=== PATIENT | male | born 1990 | race Caucasian/White ===

== ENCOUNTER 2017-04-12 18:00 | Inpatient (IN) | payer OTHER ==
[~2017-04-12] VITALS: Ht 185.4 cm; Wt 99.8 kg
--- NOTE | ~2017-04-12 | HP ---
Unit #: [id number] #: [id number] Patient: AMILCAR PALACIOS [id number] [place] [address] [id number] I MR#: [id number] NAME: AMILCAR PALACIOS. ROOM: P205 Age: 27 Sex: M Admission Date: 04/12/2017 : 1990 Attending Physician: Lauren Schilling M.D. Admitting Physician: Lauren Schilling M.D. Primary Care Physician: Amilcar Narayanan M.D. HISTORY AND PHYSICAL HISTORY OF PRESENT ILLNESS The patient is a 27-year-old male admitted to [address] [place] [address] on 04/12/2017 for suicidal ideations and drug use. PAST MEDICAL HISTORY The patient denies. PAST SURGICAL HISTORY The patient denies. SOCIAL HISTORY He is unemployed and homeless. He smokes two packs of cigarettes daily, refuses to discuss his drug use. FAMILY MEDICAL HISTORY Noncontributory. ALLERGIES No known drug allergies. CURRENT MEDICATIONS The patient is not on any home medications. REVIEW OF SYSTEMS CONSTITUTIONAL: No fever or chills. HEENT: Denies any sore throat, ear pain or runny nose. CARDIOVASCULAR: Denies chest pain, irregular heart rhythm or palpitations. CHEST: Denies shortness of breath or cough. No hemoptysis. GASTROINTESTINAL: Denies nausea, vomiting, diarrhea or chronic constipation. ENDOCRINE: Denies history of increased thirst or urination. No recent significant weight loss or gain. GENITOURINARY: Denies dysuria, frequency, or hematuria. SKIN: Denies any rashes. HEMATOLOGIC: Denies history of increased bleeding or bruising. MUSCULOSKELETAL: Denies any hot, swollen joints. No generalized muscle pain. NEUROLOGIC: Denies problems with vision or speech. No frequent, severe headaches. No numbness, tingling or weakness in any extremities. Denies loss of bladder or bowel control. PHYSICAL EXAM GENERAL: He is awake, alert and oriented in no acute distress. Unit #: [id number] #: [id number] Patient: AMILCAR PALACIOS VITAL SIGNS: Temperature 98.1, heart rate 72, respiration 18, blood pressure 151/99. HEIGHT: 6'0". WEIGHT: 250 pounds. SKIN: Warm and dry without rash or lesion. HEENT: Normocephalic. TMs not viewed. Oral and nasal passages clear. Conjunctivae clear. PERRLA. EOMs intact. NECK: Supple without lymphadenopathy or thyromegaly. HEART: Regular rate and rhythm without murmur. LUNGS: Clear. ABDOMEN: Soft, nontender. : Not done. EXTREMITIES: No evidence of cyanosis, clubbing or edema. Moves all without focal deficit. NEUROLOGICAL: Grossly within normal limits. Cranial Nerves: II: Visual galvin are intact. III, IV AND : Extraocular movements are intact. Pupils are equal, round and reactive to light. V: Facial sensation is grossly normal. VII: Facial movements and expression are normal. VIII: Auditory acuity grossly intact. IX, X: Uvula is midline. Phonation is normal. XI: Patient shrugs shoulders and turns head normally. XII: Tongue protrudes in the midline. Sensory and Motor Function: Sensory and motor sensation is grossly normal. Motor: moves all extremities well. IMPRESSION 1. Psychiatric admission. 2. Polysubstance use. RECOMMENDATIONS Psychiatric per psychiatrist. MEDICAL: No contraindication to participate in facility activities. MEDICAL PROGNOSIS Good. MEDICAL CONDITION Stable. Dictated by... Ryan Hernandez/gianna TD: 04/14/2017 01:23 JOB #: [id number] Unit #: [id number] #: [id number] Patient: AMILCAR PALACIOS HISTORY AND PHYSICAL Page 1 of 1 X KRYSTAL MICHAEL APRN HISTORY AND PHYSICAL
--- NOTE | ~2017-04-12 | DS ---
Unit #: [id number] #: [id number] Patient: [facility]YNOLDS [id number] [facility] [address] [place] [address] [id number] I MR#: [id number] NAME: AMILCAR REYNOLDS ROOM: P205 Age: 27 Sex: M Admission Date: 04/12/2017 : 1990 Discharge Date: 04/18/2017 Attending Physician: Lauren Schilling M.D. Primary Care Physician: Amilcar Narayanan M.D. DISCHARGE SUMMARY IDENTIFYING DATA Mr. Reynolds is a 27-year-old single white male, who is a resident of [place], [place], and is known to us from previous encounter, and was brought to the hospital by his family. DISCHARGE DIAGNOSES Psychiatric: Bipolar disorder, most recent episode depressed, recurrent, moderate, without psychotic features; methamphetamine abuse, moderate; benzodiazepine abuse, moderate. Medical: None. Stressors: Moderate psychosocial stressors. HISTORY OF PRESENT ILLNESS Please see initial psychiatric evaluation for details. PAST PSYCHIATRIC HISTORY Please see initial psychiatric evaluation for details. PAST MEDICAL HISTORY Please see initial psychiatric evaluation for details. HOSPITAL COURSE The patient was admitted to the adult psychiatric unit at [facility] and was oriented to the hospital environment. Routine p.r.n. medications were initiated, and he was started back on his home medications and upon initial presentation, the patient was seen to be extremely agitated and psychotic and aggressive and hostile and code was called and the patient did end up being in a code in restraints and p.r.n. medications were given and was seen to be quite hostile and aggressive and as such, medications particularly Depakote and Zyprexa were initiated as a mood stabilizer and he was seen to be doing fairly well and then able to calm down and carry on meaningful conversation. He stated that he would like to have something started for ADHD, for which Strattera was started. He was taking the medications regularly and was tolerating them fairly well and was able to show a decent and therapeutic response without any tolerability issues and was wanting to go home and was willing to continue treatment on an outpatient basis. He was denying any suicidal ideations, intent, or plan and was not seen to be a danger to self or anyone else, and as such, it was decided that he will be discharged home and will continue treatment on an outpatient basis. DISCHARGE MEDICATIONS Depakote 1000 mg b.i.d. for bipolar, Zyprexa 10 mg b.i.d. for bipolar, Strattera 40 mg in the morning for ADHD. Unit #: [id number] #: [id number] Patient: AMILCAR REYNOLDS DISCHARGE CONDITION Stable. PROGNOSIS Fair. Dictated by... Zurdo Betancourt/darron TD: 04/18/2017 07:47 JOB #: [id number] DISCHARGE SUMMARY Page 1 of 1 X Lauren Schilling MD X DISCHARGE SUMMARY
--- NOTE | ~2017-04-12 | PN ---
Unit #: [id number] #: [id number] Patient: RAQUEL REYNOLDS [id number] [facility] [address] [place] [address] [id number] MR#: [id number] NAME: RAQUEL REYNOLDS ROOM: P205 Age: 27 Sex: M Admission Date: 04/12/2017 : 1990 Attending Physician: Lauren Schilling M.D. Admitting Physician: Lauren Scihlling M.D. Primary Care Physician: Zurdo Morales PROGRESS NOTES DATE 04/16/2017 DISCUSSION Mr. Reynolds is a 27-year-old white male who was seen today and chart was reviewed and case was discussed with the staff. He has been anxious, withdrawn and rather seclusive to himself. Meanwhile, he has been cooperative with treatment recommendations and has been taking the medications and tolerating them fairly well with no reported side effects. MENTAL STATUS EXAMINATION Young white male who was casually dressed with fair personal hygiene and appears to be in no acute distress or discomfort. He was awake and alert on interaction with intact orientation. His mood was anxious with congruent affect. He denies any suicidal or homicidal ideations. His insight and judgement remains slightly impaired. TREATMENT PLAN 1. Will continue his medications and treatment protocol. Will monitor his response to the medications and make further adjustments as needed. 2. Will continue to follow up. Dictated by... Zurdo Betancourt/wolfgang TD: 04/16/2017 18:15 JOB #: [id number] Unit #: [id number] #: [id number] Patient: RAQUEL REYNOLDS PROGRESS NOTES Page 1 of 1 X Lauren Schilling MD X PROGRESS NOTE
--- NOTE | ~2017-04-12 | PA ---
Unit #: [id number] #: [id number] Patient: AMILCAR REYNOLDS [id number] [facility] [address] [place] [address] [id number] I MR#: [id number] NAME: AMILCAR REYNOLDS ROOM: P205 Age: 27 Sex: M Admission Date: 04/12/2017 : 1990 Date of Assessment: 04/13/2017 Attending Physician: Lauren Schilling M.D. Admitting Physician: Lauren Schilling M.D. Primary Care Physician: Amilcar Narayanan M.D. PSYCHIATRIC ASSESSMENT IDENTIFYING DATA Mr. Reynolds is a 27-year-old, single, white male, who is a resident of [place], [place], and is known to us from previous encounter, was self-referred to the hospital. CHIEF COMPLAINT "I'm having suicidal thoughts and I'm doing drugs." HISTORY OF PRESENT ILLNESS Mr. Reynolds is a 27-year-old, white male, who was brought to the hospital in acute psychotic, agitated, aggressive and hostile state and stated that he does not know why he is here and that he was brought in by his parents and they left and the parents reported that he has been suicidal and the patient was initially denying it, however, a phone call received from mother indicates that mother called and reported that there is a list of things that the patient and mother did today and the list of items that he is going to do himself, making statements on the paper that he is going to hang himself out back and stated that her friend just found a letter few minutes ago in the mother's house and the list was written on a book of mother's and mother stated that it appears that this has been written in the last 12 hours and mother also stated at about 1900 hours today, the patient allegedly called mother of his child and threatened her life and he was going to "take her life." There was no specific method of how he was going to do it. Mother also reported that the patient has been incessantly calling maternal grandmother that the patient's parents need to come back and get him or they will be sorry and the patient's mother reports that he has been using crack and methamphetamine on and off and she believes that he used meth in the last week. The patient was seen to be acutely psychotic, agitated, aggressive, hostile, particularly violent on presentation to the unit and a code was called and he did end up receiving intramuscular injections of Thorazine and on evaluation by me this morning, the patient was once again seen to be agitated, irritable, hostile, and stated that he has been using drugs and he needs mental health help and he is not leaving here until he gets help for both and was seen to be agitated and irritable with pressured speech, but at the same time showing better insight into his situation. Realizing that he has substance abuse issues and mental health issues and showing motivation towards treatment as he appears to be a significant threat to himself and others with suicidal and homicidal statements and recommendation for inpatient level of care has been made. SUBSTANCE ABUSE HISTORY The patient reports extensive history of substance abuse and dependence Unit #: [id number] #: [id number] Patient: AMILCAR REYNOLDS including alcohol, cannabis, cocaine, opioids, methamphetamine, and benzodiazepines, and more recently it appears that he has been using methamphetamine and benzodiazepines on a regular basis. PAST PSYCHIATRIC HISTORY The patient has had a history of psychiatric treatment in the past. Review of the medical records indicate that currently he is not active in any treatment program, and is not seeing a psychiatrist, and is not taking any psychotropic medications. PAST MEDICAL HISTORY No acute or chronic medical illnesses. ALLERGIES No known medication allergies. PERSONAL AND SOCIAL HISTORY A 27-year-old white male, who reports that he is single, unemployed, and lives alone and has poor social support system. MENTAL STATUS EXAMINATION Young white male, who was casually dressed with fair personal hygiene, appears to be in no acute distress or discomfort. He was awake and alert on interaction with intact orientation to time, place, and person. His mood was anxious and depressed with a congruent affect. His speech was slow and restricted in content. His thought processes were disorganized with some looseness of associations and flight of ideas, paranoid ideations, suicidal or homicidal ideations. His insight and judgment remain significantly impaired. DIAGNOSTIC IMPRESSION Psychiatric: Bipolar disorder, most recent episode depressed, recurrent, moderate, without psychotic features; methamphetamine abuse, moderate; benzodiazepine abuse, moderate. Medical: None. Stressors: Moderate psychosocial stressors. TREATMENT PLAN 1. The patient has presented with a history of substance abuse and mood disorder, and has been decompensating and will need inpatient hospitalization for safety and stabilization. We will start him back his home medications. We will monitor response and make further adjustments as needed. 2. Supportive therapy was provided to the patient. 3. Safe, structured, and nourishing environment will be provided. ESTIMATED LENGTH OF STAY 5 to 7 days. ABILITY TO HELP SELF Limited. WILLINGNESS TO HELP SELF The patient appears to be willing to help self. STRENGTHS Unit #: [id number] #: [id number] Patient: AMILCAR REYNOLDS 1. Communicative. 2. Cooperative. PROBLEMS 1. Chronic dysphoric symptoms. 2. Poor social support system. 3. Chronic chemical dependency. DISCHARGE CRITERIA This will be contingent upon the patient's ability to show resolution of depression and anxiety and his ability to stay safe to himself, particularly after discharge from the hospital. Dictated by... Zurdo Betancourt/darron TD: 04/14/2017 03:35 JOB #: [id number] PSYCHIATRIC ASSESSMENT Page 1 of 1 X Lauren Schilling MD X PSYCHIATRIC ASSESSMENT
--- NOTE | ~2017-04-12 | PN ---
Unit #: [id number] #: [id number] Patient: RAQUEL REYNOLDS [id number] [facility] [address] [place] [address] [id number] I MR#: [id number] NAME: RAQUEL REYNOLDS ROOM: P205 Age: 27 Sex: M Admission Date: 04/12/2017 : 1990 Attending Physician: Lauren Schilling M.D. Admitting Physician: Lauren Schilling M.D. Primary Care Physician: Zurdo Morales PROGRESS NOTES DATE 04/14/2017 DISCUSSION Mr. Reynolds is a 27-year-old white male who was seen today and chart was reviewed and case was discussed with the staff. He appears to be somewhat calmer as he has been taking the medications and tolerating them fairly well. He remains disorganized, anxious, unkempt, disheveled. However, no agitation or aggression has been noted. MENTAL STATUS EXAMINATION Young white male who was casually dressed with fair personal hygiene and appears to be in no acute distress or discomfort. He was awake and alert on interaction with intact orientation. His mood was anxious with congruent affect. He denies any suicidal or homicidal ideations. His insight and judgement remains slightly impaired. TREATMENT PLAN 1. Will continue on his current treatment protocol. Will monitor his response to the medications and make further adjustments as needed. 2. Will continue to follow up. Dictated by... Zurdo Betancourt/wolfgang TD: 04/15/2017 15:56 JOB #: [id number] Unit #: [id number] #: [id number] Patient: RAQUEL REYNOLDS PROGRESS NOTES Page 1 of 1 X Lauren Schilling MD X PROGRESS NOTE
--- NOTE | ~2017-04-12 | PN ---
Unit #: [id number] #: [id number] Patient: AMILCAR REYNOLDS [id number] [facility] [address] [place] [address] [id number] I MR#: [id number] NAME: AMILCAR REYNOLDS ROOM: P205 Age: 27 Sex: M Admission Date: 04/12/2017 : 1990 Attending Physician: Lauren Schilling M.D. Admitting Physician: Lauren Schilling M.D. Primary Care Physician: Amilcar Narayanan M.D. [facility] PROGRESS NOTES DATE 04/15/2017 DISCUSSION Mr. Reynolds is a 27-year-old, white male who was seen today and chart was reviewed and case was discussed with the staff. He has been anxious, withdrawn, reports not feeling good, still having negative thoughts (1) stating that he has been having thoughts of hurting himself and hurting other people and that he wants to get better and has been taking medications and has been asking me as to how long it is going to take for the medication to start being affective. MENTAL STATUS EXAM Young white male who was casually dressed with fair personal hygiene, appears to be in no acute distress or discomfort. He was awake and alert with impaired attention and concentration. His mood was anxious with congruent affect. He reports having suicidal ideation as well as vague homicidal ideation. His insight and judgement remains significantly impaired. TREATMENT PLAN 1. We will continue him on his current medications and treatment protocol. We will monitor his response to the medication and make further adjustments as needed. 2. We will continue to follow up. Dictated by... Zurdo Betancourt/gianna TD: 04/16/2017 05:02 JOB #: [id number] Unit #: [id number] #: [id number] Patient: AMILCAR REYNOLDS PROGRESS NOTES Page 1 of 1 X Lauren Schilling MD X PROGRESS NOTE
--- NOTE | ~2017-04-12 | PN ---
Unit #: [id number] #: [id number] Patient: AMILCAR REYNOLDS [id number] [facility] [address] [place] [address] [id number] I MR#: [id number] NAME: AMILCAR REYNOLDS ROOM: P205 Age: 27 Sex: M Admission Date: 04/12/2017 : 1990 Attending Physician: Lauren Schilling M.D. Admitting Physician: Lauren Schilling M.D. Primary Care Physician: Amilcar Narayanan M.D. [facility] PROGRESS NOTES DATE OF SERVICE: 04/17/2017 SUBJECTIVE Mr. Reynolds is a 27-year-old white male with mood disorder, who was seen today and chart was reviewed and the case was discussed with the staff. He has been doing fairly well with no agitation or irritability and has been cooperative with the treatment recommendations and has been taking the medications and tolerating them fairly well with no reported side effects. MENTAL STATUS EXAMINATION Young white male, who was casually dressed with fair personal hygiene, appears to be in no acute distress or discomfort. He was awake and alert on interaction with intact orientation. His mood was anxious with a congruent affect. He denies any suicidal or homicidal ideations. His insight and judgment remain slightly impaired. TREATMENT PLAN 1. We will continue him on his current medications and treatment protocol. We will monitor his response to the medications and make further adjustments as needed. 2. We will continue to follow up. Dictated by... Zurdo Betancourt/darron TD: 04/17/2017 15:18 JOB #: [id number] [facility] PROGRESS NOTES Page 1 of 1 X Lauren Schilling MD X PROGRESS NOTE
[~2017-04-12 18:00] MED LIST: ELOCON15 G1 TP; KEFLEX PO; NAPROSYN250 M1 PO; NAPROXEN PO; NEURONTIN300 MG PO; NO MEDICATIONS; NORCO1 TAB 10/3 PO; PHENERGAN25 M1 PO; TORADOL10 MG PO; ULTRAM PO; VOLTAREN75 MG; [UNRECOGNIZED DRUG - OTHER] PO
[2017-04-13 15:12] LABS: AMPHETAMINE POS (NEG); BARBITURATES NEG (NEG); BENZODIAZEPINES POS (NEG); COCAINE NEG (NEG); MARIJUANA POS (NEG); OPIATES NEG (NEG); TRICYCLIC ANTIDEPRESSANTS NEG (NEG); U METHADONE NEG (NEG)
[2017-04-15 09:39] LABS: BASOPHIL# 0.1 X10e3 (0-0.3); BASOPHIL% 1.1 % (0-2.5); EOSINOPHIL# 0.6 X10e3 (0-0.7); EOSINOPHIL% 7.1 % (0.0-7.0); HEMATOCRIT 42.3 % (38.0-50.0); HEMOGLOBIN 14.2 gm/dL (13.0-16.0); LYMPHOCYTE# 2.8 X10e3 (1.0-3.5); LYMPHOCYTE% 32.1 % (17.0-45.0); MEAN CELL VOLUME 95.8 FL (83-96); MEAN CORPUSCULAR HEMOGLOBIN 32.3 PG (28-34); MEAN CORPUSCULAR HGB CONC 33.7 g/dL (30-36); MEAN PLATELET VOLUME 7.9 FL (6.5-11.5); MONOCYTE# 0.6 X10e3 (0-1.0); MONOCYTE% 6.7 % (3.0-12.0); NEUTROPHIL# 4.6 X10e3 (1.5-7.1); PLATELET COUNT 313 X10e3 (140-420); RED BLOOD COUNT 4.42 X10e (3.90-5.60); RED CELL DISTRIBUTION WIDTH 13.6 % (11.0-15.5); WHITE BLOOD COUNT 8.6 X10e3 (4.0-10.5)
[2017-04-15 09:47] LABS: DIFF IND NO
[2017-04-15 10:50] LABS: BILIRUBIN,TOTAL 0.4 mg/dL (0.2-2.0); BUN/CREATININE RATIO 16.25; CALCIUM SERUM 9.1 mg/dL (8.4-10.2); CREATININE SERUM 0.8 mg/dL (0.6-1.4); GLOM FILT RATE Estimated 120.8 mL/min (>60); POTASSIUM 3.8 mmol/L (3.5-5.1); PROTEIN TOTAL SERUM 6.8 g/dL (6.0-8.3)
== END 2017-04-18 10:25 | DRG 885 ==
LOC: P2S 21:11
PROVIDERS: Psychiatry & Neurology Psychiatry
DX: F31.32 Bipolar disorder, current episode depressed, moderate (principal); F13.20 Sedative, hypnotic or anxiolytic dependence, uncomplicated; R45.851 Suicidal ideations; F15.20 Other stimulant dependence, uncomplicated; R45.850 Homicidal ideations; Z59.0 Homelessness; F17.210 Nicotine dependence, cigarettes, uncomplicated
CPT/HCPCS: 80053; 80307; 85025; J3230

== ENCOUNTER 2017-05-05 16:58 | Inpatient (IN) | payer OTHER ==
[~2017-05-05] VITALS: Ht 185.4 cm; Wt 102.5 kg
--- NOTE | ~2017-05-05 | HP ---
Unit #: [id number] #: [id number] Patient: AMILCAR PALACIOS [id number] [place] [address] [id number] MR#: [id number] NAME: AMILCAR PALACIOS. ROOM: P214 Age: 27 Sex: M Admission Date: 05/05/2017 : 1990 Attending Physician: Eliel Arguello M.D. Admitting Physician: Eliel Arguello M.D. Primary Care Physician: Amilcar Narayanan M.D. HISTORY AND PHYSICAL HISTORY OF PRESENT ILLNESS Amilcar is a 27 year old admitted to [address] [place] [address] with depression and verbalizing wanting to hurt himself. He has had other admissions to this facility for the same. PAST MEDICAL HISTORY High blood pressure. PAST SURGICAL HISTORY Nothing reported. ALLERGIES No known drug allergies. SOCIAL HISTORY Smokes at least 1-1/2 packs per day. Drinks alcohol rarely. Has a history of illicit drug use but denies anything currently. FAMILY HISTORY Medically noncontributory. REVIEW OF SYSTEMS CONSTITUTIONAL: No fever or chills. HEENT: Denies any sore throat, ear pain or runny nose. CARDIOVASCULAR: Denies chest pain, irregular heart rhythm or palpitations. CHEST: Denies shortness of breath or cough. No hemoptysis. GASTROINTESTINAL: Denies nausea, vomiting, diarrhea or chronic constipation. ENDOCRINE: Denies history of increased thirst or urination. No recent significant weight loss or gain. GENITOURINARY: Denies dysuria, frequency, or hematuria. SKIN: Denies any rashes. HEMATOLOGIC: Denies history of increased bleeding or bruising. MUSCULOSKELETAL: Denies any hot, swollen joints. No generalized muscle pain. NEUROLOGIC: Denies problems with vision or speech. No frequent, severe headaches. No numbness, tingling or weakness in any extremities. Denies loss of bladder or bowel control. CURRENT MEDICATIONS 1. Latuda 20 mg q.a.m. 2. Strattera 40 mg daily. 3. Nicotine patch 21 mg daily. Unit #: [id number] #: [id number] Patient: AMILCAR PALACIOS 4. Milk of Magnesia p.r.n. 5. Maalox p.r.n. 6. Tylenol p.r.n. 7. Inderal 20 mg b.i.d. 8. Depakote 1000 mg b.i.d. PHYSICAL EXAMINATION GENERAL: Alert, well-nourished, in no apparent distress. VITAL SIGNS: Blood pressure 134/84, heart rate 82, respirations 16, temperature 98.6. WEIGHT: 226. HEIGHT: 6 feet 1 inch. SKIN: Warm and dry without rash or lesion. HEENT: Normocephalic. TMs not viewed. Oral and nasal passages clear. Conjunctivae clear. PERRLA. EOMs intact. NECK: Supple without lymphadenopathy or thyromegaly. HEART: Regular rate and rhythm without murmur. LUNGS: Clear. ABDOMEN: Soft, nontender. : Not done. EXTREMITIES: No evidence of cyanosis, clubbing or edema. Moves all without focal deficit. NEUROLOGICAL: Grossly within normal limits. Cranial Nerves: II: Visual galvin are intact. III, IV AND : Extraocular movements are intact. Pupils are equal, round and reactive to light. V: Facial sensation is grossly normal. VII: Facial movements and expression are normal. VIII: Auditory acuity grossly intact. IX, X: Uvula is midline. Phonation is normal. XI: Patient shrugs shoulders and turns head normally. XII: Tongue protrudes in the midline. Sensory and Motor Function: Sensory and motor sensation is grossly normal. Motor: moves all extremities well. Coordination: Gait is normal. Deep Tendon Reflexes: Intact. IMPRESSION Psychiatric admission. RECOMMENDATIONS PSYCHIATRIC: Per psychiatrist. MEDICAL: 1. See no contraindication to participate in facility's activities. 2. Continue Inderal 20 mg b.i.d. MEDICAL PROGNOSIS Good. MEDICAL CONDITION Stable. Dictated by... Paty Hewitt P.A.-C. for Zurdo Zuniga/wolfgang Unit #: [id number] #: [id number] Patient: AMILCAR PALACIOS TD: 05/06/2017 16:16 JOB #: [id number] HISTORY AND PHYSICAL Page 1 of 1 X Paty Hewitt X HISTORY AND PHYSICAL
--- NOTE | ~2017-05-05 | DS ---
Unit #: [id number] #: [id number] Patient: AMILCAR PALACIOS [id number] [place] [address] [id number] MR#: [id number] NAME: AMILCAR PALACIOS. ROOM: P214 Age: 27 Sex: M Admission Date: 05/05/2017 : 1990 Discharge Date: 05/08/2017 Attending Physician: Eliel Arguello M.D. Primary Care Physician: Amilcar Narayanan M.D. DISCHARGE SUMMARY REASON FOR ADMISSION The patient is a 27-year-old white male, admitted to the [address] [place] [address] with increasing depression. HOSPITAL COURSE The patient was admitted to the [address] [place] [address] and placed on suicide precautions. His Zyprexa was discontinued given the patient's complaints of a ravenous appetite with that medication, and its inefficacy in dealing with his depressive symptoms and he was begun on Latuda 20 mg daily. He tolerated this medication without complaint. He was placed on routine detoxification protocol for alcohol during his brief stay in the hospital. By 05/08, the patient was in bright spirits. He exhibited no signs or symptoms of withdrawn, and requested discharge and it was so ordered. DISCHARGE DIAGNOSES Garland I Bipolar disorder, most recent episode depressed. Alcohol use disorder. Cannabis use disorder. Garland II Garland III Garland IV Garland V DISPOSITION ON DISCHARGE The patient is discharged on the following medications: 1. Latuda 20 mg daily for bipolar depression 2. Strattera 40 mg twice daily for ADHD 3. Depakote 1000 mg twice daily for mood stabilization 4. Inderal 20 mg twice daily for hypertension PROGNOSIS The patient's prognosis is considered fair. DIET AND ACTIVITY No dietary or physical restrictions were placed on the patient at the time of discharge. Follow up will take place through the auspices of community mental [facility] resources. Unit #: [id number] #: [id number] Patient: AMILCAR PALACIOS Dictated by..Rebecca Arguello M.D. CB/jevon TD: 05/09/2017 08:00 JOB #: [id number] DISCHARGE SUMMARY Page 1 of 1 X Eliel Arguello MD DISCHARGE SUMMARY
--- NOTE | ~2017-05-05 | PA ---
Unit #: [id number] #: [id number] Patient: AMILCAR PALACIOS [id number] [place] [address] [id number] MR#: [id number] NAME: AMILCAR PALACIOS ROOM: P214 Age: 27 Sex: M Admission Date: 05/05/2017 : 1990 Date of Assessment: 05/06/2017 Attending Physician: Eliel Arguello M.D. Admitting Physician: Eliel Arguello M.D. Primary Care Physician: Amilcar Narayanan M.D. PSYCHIATRIC ASSESSMENT IDENTIFYING INFORMATION The patient is a 27-year-old white male admitted to [address] [place] [address] complaining of severe depression. CHIEF COMPLAINT None given. INFORMANT(S) Patient, reliability fair. HISTORY OF PRESENT ILLNESS The patient is a 27-year-old white male just discharged from this facility by Dr. Schilling on 04/18/2017. The patient reports that he has been prescribed medications since that time. These include the Strattera, Depakote, and Zyprexa. The patient reports that the medications are "making him hallucinate" and he is reporting worsening depression and thoughts of suicide. He is also reporting a ravenous appetite since initiation of Zyprexa. The patient admits to abuse of alcohol and cannabis prior to admission to the hospital. While hospitalized, the patient was also begun on Strattera for his "ADHD." For more complete history of present illness, please refer to previously dictated notes. PAST PSYCHIATRIC HISTORY Reviewed, no changes. PAST MEDICAL HISTORY Reviewed, no changes. MEDICATIONS 1. Strattera. 2. Zyprexa. 3. Propranolol. 4. Depakote. ALLERGIES None. FAMILY HISTORY Reviewed, no changes. SOCIAL HISTORY Reviewed, no changes. Unit #: [id number] #: [id number] Patient: AMILCAR PALACIOS MENTAL STATUS EXAMINATION Examination at this time reveals the patient to be a well-developed well-nourished white male appearing her stated age. She is in no apparent physical distress at the time of the examination. He is awake, alert, and oriented in all spheres. His mood is dysphoric, his affect constricted. Speech is generally well-coherent. There are no gross deficits in memory or cognition noted. Intelligence is judged to be in the average range based on fund of knowledge. The patient is cooperative throughout the interview. He is currently endorsing positive suicidal ideation. He denies homicidal ideation. He reports positive visual and auditory hallucinations. His judgment and insight appear to be somewhat impaired. ASSETS AND LIABILITIES The patient's assets are to be assessed. Liabilities: Lack of resources. DIAGNOSTIC IMPRESSION 1. Bipolar disorder, depressed phase. 2. Alcohol use disorder. 3. Cannabis use disorder. 4. Attention deficit disorder by history. TREATMENT PLAN The patient remains hospitalized for safety and stabilization. I will discontinue Zyprexa and begin an trial of lurasidone 10 mg daily to address depressive symptoms. We await results of the patient's Depakote level. Dr. Schilling will assume care of the patient upon his return for medication on Friday if the patient is still in the hospital. ESTIMATED LENGTH OF STAY 5 to 7 days. Dictated by... Eliel Arguello M.D. LORNA/joceline TD: 05/06/2017 13:30 JOB #: [id number] PSYCHIATRIC ASSESSMENT Page 1 of 1 X Eliel Arguello MD X PSYCHIATRIC ASSESSMENT
--- NOTE | ~2017-05-05 | PN ---
Unit #: [id number] #: [id number] Patient: RAQUEL PALACIOS [id number] [facility] [address] [place] [address] [id number] MR#: [id number] NAME: RAQUEL PALACIOS ROOM: P214 Age: 27 Sex: M Admission Date: 05/05/2017 : 1990 Attending Physician: Eliel Arguello M.D. Admitting Physician: Eliel Arguello M.D. Primary Care Physician: Zurdo Morales PROGRESS NOTES DATE 05/07/2017 DISCUSSION The patient is in brighter spirits today and has tolerated reinitiation of medications without complaint. He is requesting reinitiation of "Neurontin which I take for my neuropathic pain." I explained to the patient that this medication is now being controlled and is thought to have abuse potential and that I will not plan on restarting it. The patient has been understanding. Dictated by... Eliel Arguello M.D. CB/joceline TD: 05/07/2017 14:02 JOB #: [id number] DI PROGRESS NOTES Page 1 of 1 X Eliel Arguello MD X PROGRESS NOTE
--- NOTE | ~2017-05-05 | PN ---
Unit #: [id number] #: [id number] Patient: RAQUEL PALACIOS [id number] [facility] [address] [place] [address] [id number] MR#: [id number] NAME: RAQUEL PALACIOS ROOM: P214 Age: 27 Sex: M Admission Date: 05/05/2017 : 1990 Attending Physician: Eliel Arguello M.D. Admitting Physician: Eliel Arguello M.D. Primary Care Physician: Zurdo Morales PROGRESS NOTES DATE 05/08/2017 DISCUSSION The patient is abed resting comfortably today, offering no new complaints though his participation within the therapeutic milieu does leave much to be desired. Dictated by... Eliel Arguello M.D. CB/bzg TD: 05/08/2017 14:47 JOB #: [id number] DI PROGRESS NOTES Page 1 of 1 X Eliel Arguello MD X PROGRESS NOTE
[2017-05-06 09:55] LABS: BASOPHIL# 0.1 X10e3 (0-0.3); BASOPHIL% 0.7 % (0-2.5); EOSINOPHIL# 0.6 X10e3 (0-0.7); HEMATOCRIT 44.1 % (38.0-50.0); HEMOGLOBIN 15.2 gm/dL (13.0-16.0); LYMPHOCYTE# 2.1 X10e3 (1.0-3.5); LYMPHOCYTE% 21.7 % (17.0-45.0); MEAN CELL VOLUME 95.6 FL (83-96); MEAN CORPUSCULAR HEMOGLOBIN 32.9 PG (28-34); MEAN CORPUSCULAR HGB CONC 34.4 g/dL (30-36); MEAN PLATELET VOLUME 7.7 FL (6.5-11.5); MONOCYTE# 0.9 X10e3 (0-1.0); MONOCYTE% 9.3 % (3.0-12.0); NEUTROPHIL% 62.3 % (40-75); PLATELET COUNT 313 X10e3 (140-420); RED BLOOD COUNT 4.61 X10e (3.90-5.60); RED CELL DISTRIBUTION WIDTH 14.6 % (11.0-15.5); WHITE BLOOD COUNT 9.6 X10e3 (4.0-10.5)
[2017-05-06 10:00] LABS: DIFF IND NO
[2017-05-06 10:30] LABS: BILIRUBIN,TOTAL 0.6 mg/dL (0.2-2.0); BUN/CREATININE RATIO 24.28; CALCIUM SERUM 9.3 mg/dL (8.4-10.2); CREATININE SERUM 0.7 mg/dL (0.6-1.4); GLOM FILT RATE Estimated 127.6 mL/min (>60); POTASSIUM 4.6 mmol/L (3.5-5.1); PROTEIN TOTAL SERUM 6.7 g/dL (6.0-8.3)
[2017-05-06 12:35] LABS: URINE APPEARANCE CLEAR; URINE BILIRUBIN NEG (NEG); URINE BLOOD NEG (NEG); URINE COLOR YELLOW; URINE GLUCOSE NEG (NEG); URINE KETONE NEG (NEG); URINE LEUKOCYTE ESTERASE NEG (NEG); URINE NITRATE NEG (NEG); URINE PH 6.5 (5-8); URINE PROTEIN NEG (NEG); URINE SPECIFIC GRAVITY 1.017 (1.003-1.035); URINE UROBILINOGEN 0.2 MG/DL (NEG)
[2017-05-06 12:58] LABS: AMPHETAMINE NEG (NEG); BARBITURATES NEG (NEG); BENZODIAZEPINES NEG (NEG); COCAINE NEG (NEG); MARIJUANA POS (NEG); OPIATES NEG (NEG); TRICYCLIC ANTIDEPRESSANTS NEG (NEG); U METHADONE NEG (NEG)
== END 2017-05-08 15:21 | disposition home or self-care (01) | DRG 885 ==
LOC: P2S 19:32
PROVIDERS: Specialist
DX: F31.9 Bipolar disorder, unspecified (principal); I10 Essential (primary) hypertension; F10.10 Alcohol abuse, uncomplicated; F12.10 Cannabis abuse, uncomplicated; F17.210 Nicotine dependence, cigarettes, uncomplicated; F90.9 Attention-deficit hyperactivity disorder, unspecified type
CPT/HCPCS: 80053; 80307; 81003; 85025